=== PATIENT | male | born 1955 | race Caucasian/White ===

== ENCOUNTER 2025-04-02 10:32 | Inpatient (IN) ==
[2025-04-02 11:19] LABS: Basophils # (auto) 0.03 K/uL (0.00-0.20); Basophils % (auto) 0.4 %; Eosinophils # (auto) 0.13 K/uL (0.00-0.50); Eosinophils % (auto) 1.7 %; Hematocrit (blood only) 38.9 % (42.0-52.0); Hemoglobin 13.3 g/dl (14.0-18.0); Immature Granulocytes # (auto) 0.03 K/uL (0.01-0.20); Immature Granulocytes % (auto) 0.4 %; Lymphocytes # (auto) 1.53 K/uL (1.20-3.40); Lymphocytes % (auto) 19.5 %; Mean Corpuscular Hemoglobin 32.8 pg (25.0-34.0); Mean Corpuscular Hgb Conc 34.2 g/dL (32.0-36.0); Mean Corpuscular Volume 95.8 fL (80.0-100.0); Mean Platelet Volume 11.7 fL (9.4-12.4); Monocytes # (auto) 0.51 K/uL (0.11-0.59); Monocytes % (auto) 6.5 %; Neutrophils # (auto) 5.62 K/uL (1.40-6.50); Neutrophils % (auto) 71.5 %; Platelet Count 156 K/uL (130-400); RDW Coefficient of Variation 14.6 % (11.5-14.5); RDW Standard Deviation 50.8 fL (36.4-46.3); Red Blood Count 4.06 M/uL (4.70-6.10); White Blood Count 7.85 K/ul (4.8-10.8)
--- NOTE | 2025-04-02 11:33 | Emergency Department Note ---
Impression & Plan Acute exacerbation of CHF (congestive heart failure), Hypomagnesemia, Dyspnea on exertion, Elevated brain natriuretic peptide (BNP) level ED Provider Note HISTORY OF PRESENT ILLNESS: Patient is a 69-year-old male presenting with chest pain and shortness of breath. Patient reports symptoms been ongoing for the last month but have gotten progressively worse and more persistent. He reports that he is very short of breath with minimal amounts of exertion. He walked to the bathroom in the emergency department and needed about 5 steps before became very winded. He states that he also gets intermittent episodes of left-sided chest pain. He describes chest pain as "feels like someone punched me in the chest." He reports that 48 hours ago he had an episode of chest pain that woke him from sleep and he took a sublingual nitro with improvement in his chest pain symptoms. Patient denies any DVT or PE history. Denies any history of cardiac stents. Patient was on aspirin and Eliquis for history of A-fib. He reports he has had some lower extremity edema over the last few weeks. He denies any fevers but does report an intermittent cough productive of a white mucus over the last few weeks. Denies any recent sick contact exposures. He does report that he has occasionally coughed so hard that he has noticed blood in his sputum. ROS: as above PHYSICAL EXAM: Constitutional: Patient appears in no acute distress. HENT: Head: Normocephalic and atraumatic. Eyes: EOMI, PERRL Mouth/Throat: Mucous membranes moist. Neck: Trachea midline. Neck supple. Cardiovascular: Irregular rhythm. No murmurs, rubs or gallops. Intact distal pulses. Pulmonary/Chest: No respiratory distress. Breath sounds clear and equal bilaterally. No wheezes or rales. Abdominal: Abdomen soft, no tenderness, rebound or guarding. Musculoskeletal: No tenderness or deformity noted. Trace edema of bilateral lower extremities Skin: Warm and dry. No rash, erythema, pallor or cyanosis Psychiatric: Appropriate mood and affect for situation. Neurological: Alert and keenly responsive. CN II-XII grossly intact, moving all extremities equally and fully. MDM: - Vitals signs showed hypertension and tachycardia. - History obtained via patient. History as above. - Chronic conditions affecting care: Mitral regurgitation; HLD; paroxysmal Afib; bifascicular block - Differential diagnoses include, but are not limited to: Congestive heart failure; acute coronary syndrome; COPD/asthma exacerbation; pulmonary edema; pulmonary embolism; pneumonia; pneumothorax; viral syndrome - Order placed for continuous cardiac monitoring. At this time, monitor showed rate of 95 bpm with irregular rhythm, per my interpretation. - External medical records reviewed. Cardiology visit note dated02/2024 was reviewed. Patient follows in their clinic for paroxysmal A-fib and severe mitral regurg. - EKG image interpreted by myself showed atrial flutter. Rate 79 bpm. QT 418. No acute ischemic changes. Noted to have a bifascicular block. - Laboratory workup interpreted by myself showed normal WBC; elevated INR (1.2); elevated D-dimer (550); stable electrolytes other than a hypomagnesemia (Mg 1.5); elevated total bilirubin (1.8) with normal AST/ALT; elevated troponin (20.5); elevated BNP (289) - CXR image reviewed by myself showed perihilar vascular congestion, per my interpretation. - Viral respiratory panel negative - CT PE negative for PE. Noted to have interval trace pleural effusions. Also did have a few small pulmonary nodules. - Patient given 40 mg IV lasix in ER. - Discussion was had with case filler about patient's case and need for admission - Hospitalist, Dr. Chen, consulted for admission - [facility] ASSESSMENT AND PLAN: Diagnosis: Acute CHF exacerbation; dyspnea on exertion; hypomagnesemia; elevated BNP Plan: Admit Past Med/Surg History Problem List (Updated 04/02/25 @ 16:54 by Alma Wells MD) Elevated brain natriuretic peptide (BNP) level (Acute) Dyspnea on exertion (Acute) Hypomagnesemia (Acute) Acute exacerbation of CHF (congestive heart failure) (Acute) Severe mitral regurgitation Hypercholesterolemia Anticoagulant long-term use Bifascicular bundle branch block Chest pain Paroxysmal atrial fibrillation Medical History Atrial fibrillation Social History Smoking Status: Unknown if ever smoked Tobacco Type: E-cigarettes / Vaping Preferred Language: Angolan Feels Safe at Home: Yes Allergies Allergies Allergy/AdvReac Type Severity Reaction Status Date / Time No Known Allergies Allergy Verified 02/06/24 12:51 Home Meds Home Medications Medication Instructions Recorded Confirmed aspirin 81 mg tablet,delayed 81 mg PO DAILY 06/14/23 04/02/25 release atorvastatin 40 mg tablet 80 mg PO HS 06/14/23 04/02/25 enalapril maleate 20 mg tablet 20 mg PO DAILY 06/14/23 04/02/25 furosemide 40 mg tablet (Lasix) 40 mg PO DAILY 06/14/23 04/02/25 insulin regular human 100 unit/mL 1 sliding scale dose subcut 06/14/23 04/02/25 injection solution (Novolin R USEASDIRECTD Regular U-100 Insulin) metformin 1,000 mg tablet 1,000 mg PO BID 06/14/23 04/02/25 nitroglycerin 0.4 mg sublingual 0.4 mg sublingual DIRECTED PRN 06/14/23 04/02/25 tablet (Nitrostat) Chest Pain potassium chloride 10 mEq 10 meq PO DAILY 06/14/23 04/02/25 tablet,extended release apixaban 5 mg tablet (Eliquis) 5 mg PO BID 07/15/23 04/02/25 insulin glargine 100 unit/mL 34 unit subcut DAILY 02/06/24 04/02/25 subcutaneous solution metoprolol tartrate 100 mg tablet 100 mg PO DAILY 04/02/25 04/02/25 Results & Data (ED) Vital Signs Vital Signs - 24 hr 04/02/25 10:42 04/02/25 10:42 04/02/25 11:00 Temperature 36.7 C Temperature Source Oral Pulse Rate 110 H Pulse Rate from SpO2 Sensor Respiratory Rate 24 Respiratory Effort / Characteristics Non-Labored Spontaneous Non-Labored Respiratory Depth Normal Normal Respiratory Pattern Regular Blood Pressure 121/93 Blood Pressure Mean 102 Pulse Oximetry 97 93 Pulse Oximetry [Exercises] Oxygen Delivery Method Room Air Room Air Sepsis Recent Fever Within 48 Hours No Sepsis New/Unexplained Change in Mental Status N/A Sepsis Action Taken by Nursing No Action Required 04/02/25 11:43 04/02/25 11:57 04/02/25 12:36 Temperature Temperature Source Pulse Rate 69 76 Pulse Rate from SpO2 Sensor 80 Respiratory Rate 15 Respiratory Effort / Characteristics Respiratory Depth Respiratory Pattern Blood Pressure 133/87 Blood Pressure Mean 102 Pulse Oximetry 96 Pulse Oximetry [Exercises] Oxygen Delivery Method Room Air Room Air Sepsis Recent Fever Within 48 Hours Sepsis New/Unexplained Change in Mental Status Sepsis Action Taken by Nursing 04/02/25 13:55 04/02/25 14:00 04/02/25 14:03 Temperature Temperature Source Pulse Rate 73 62 Pulse Rate from SpO2 Sensor 66 Respiratory Rate 24 17 Respiratory Effort / Characteristics Respiratory Depth Respiratory Pattern Blood Pressure 114/67 123/87 Blood Pressure Mean 87 92 Pulse Oximetry 94 93 Pulse Oximetry [Exercises] Oxygen Delivery Method Room Air Room Air Sepsis Recent Fever Within 48 Hours Sepsis New/Unexplained Change in Mental Status Sepsis Action Taken by Nursing 04/02/25 14:34 04/02/25 14:39 04/02/25 15:09 Temperature Temperature Source Pulse Rate 79 74 Pulse Rate from SpO2 Sensor 73 71 Respiratory Rate 17 13 Respiratory Effort / Characteristics Respiratory Depth Respiratory Pattern Blood Pressure 139/98 125/74 Blood Pressure Mean 112 91 Pulse Oximetry 93 98 Pulse Oximetry [Exercises] Oxygen Delivery Method Room Air Room Air Sepsis Recent Fever Within 48 Hours Sepsis New/Unexplained Change in Mental Status Sepsis Action Taken by Nursing 04/02/25 15:55 04/02/25 16:00 04/02/25 16:09 Temperature Temperature Source Pulse Rate 75 69 Pulse Rate from SpO2 Sensor 73 Respiratory Rate 24 Respiratory Effort / Characteristics Respiratory Depth Respiratory Pattern Blood Pressure 117/69 Blood Pressure Mean 85 Pulse Oximetry 93 Pulse Oximetry [Exercises] 94 Oxygen Delivery Method Room Air Room Air Sepsis Recent Fever Within 48 Hours Sepsis New/Unexplained Change in Mental Status Sepsis Action Taken by Nursing Laboratory Data 04/02/25 10:45 04/02/25 10:45 Lab Results 04/02/25 04/02/25 04/02/25 Range/Units 10:45 13:05 13:33 WBC 7.85 (4.8-10.8) K/ul RBC 4.06 L (4.70-6.10) M/uL Hgb 13.3 L (14.0-18.0) g/dl Hct 38.9 L (42.0-52.0) % MCV 95.8 (80.0-100.0) fL MCH 32.8 (25.0-34.0) pg MCHC 34.2 (32.0-36.0) g/dL RDW Std Deviation 50.8 H (36.4-46.3) fL RDW Coeff of Toi 14.6 H (11.5-14.5) % Plt Count 156 (130-400) K/uL MPV 11.7 (9.4-12.4) fL Immature Gran % (Auto) 0.4 % Neut % (Auto) 71.5 % Lymph % (Auto) 19.5 % [place] % (Auto) 6.5 % Eos % (Auto) 1.7 % Baso % (Auto) 0.4 % Neut # (Auto) 5.62 (1.40-6.50) K/uL Lymph # (Auto) 1.53 (1.20-3.40) K/uL [place] # (Auto) 0.51 (0.11-0.59) K/uL Eos # (Auto) 0.13 (0.00-0.50) K/uL Baso # (Auto) 0.03 (0.00-0.20) K/uL Immature Gran # (Auto) 0.03 (0.01-0.20) K/uL PT 12.5 H (9.0-12.0) Seconds INR 1.2 H (0.9-1.1) D-Dimer 550 H* (0-500) ug/L FEU Sodium 143 (136-145) mmol/L Potassium 4.1 (3.5-5.1) mmol/L Chloride 106 (98-107) mmol/L Carbon Dioxide 29 (21-32) mmol/L Anion Gap 8 (3-11) BUN 29 H (6-23) mg/dl Creatinine 1.21 (0.6-1.4) mg/dl Est Cr Clr Drug Dosing 66.3 ml/min eGFR 64.81 BUN/Creatinine Ratio 24.0 H (10-20) Glucose 114 H (70-99(Fasting)) mg/dl Calcium 9.7 (8.6-10.3) mg/dl Magnesium 1.5 L (1.7-2.4) mg/dl Total Bilirubin 1.8 H (0.2-1.0) mg/dl AST 19 (13-39) U/L ALT 24 (7-52) U/L Alkaline Phosphatase 71 (34-104) U/L Troponin I High Sens 20.5 H 19.7 (0-20) pg/ml B-Natriuretic Peptide 389 H (0-100) pg/ml Total Protein 6.8 (6.0-8.3) gm/dl Albumin 3.9 (3.4-5.0) gm/dl Globulin 2.9 (2.5-4.0) gm/dl Albumin/Globulin Ratio 1.3 (0.9-2) Urine Color Yellow Urine Appearance Clear (Clear) Urine pH 6.5 (4.5-7.5) Ur Specific [place] 1.009 (1.000-1.030) Urine Protein Negative (Negative) Urine Glucose (UA) Negative (Negative) Urine Ketones Negative (Negative) Urine Blood Negative (Negative) Urine Nitrite Positive A (Negative) Urine Bilirubin Negative (Negative) Urine Urobilinogen Negative (Negative) Ur Leukocyte Esterase 1+ H (Negative) Urine WBC (Auto) 6-10 H (0-5) /hpf Urine RBC (Auto) 0-2 (0-2) /hpf U Hyaline Cast (Auto) 0-2 (0-2) /lpf U Epithel Cells (Auto) 0-2 (0-2) /hpf Urine Bacteria (Auto) 3+ H (None Seen) Urine Comment Adenovirus (PCR) (NotDetected) B. pertussis DNA (PCR) (NotDetected) B.parapertussis DNA PCR (NotDetected) C. pneumoniae DNA (PCR) (NotDetected) Coronavirus OC43 (PCR) (NotDetected) Coronavirus HKU1 (PCR) (NotDetected) Coronavirus 229E (PCR) (NotDetected) SARS-CoV-2 (PCR) (NotDetected) Coronavirus NL63 (PCR) (NotDetected) Human Metapneumovir PCR (NotDetected) Influenza Type A (PCR) (NotDetected) Influenza Type B (PCR) (NotDetected) M. pneumoniae (PCR) (NotDetected) Parainfluenza 1 (PCR) (NotDetected) Parainfluenza 2 (PCR) (NotDetected) Parainfluenza 3 (PCR) (NotDetected) Parainfluenza 4 (PCR) (NotDetected) RSV (PCR) (NotDetected) Entero/Rhino (PCR) (NotDetected) 04/02/25 Range/Units Unknown WBC (4.8-10.8) K/ul RBC (4.70-6.10) M/uL Hgb (14.0-18.0) g/dl Hct (42.0-52.0) % MCV (80.0-100.0) fL MCH (25.0-34.0) pg MCHC (32.0-36.0) g/dL RDW Std Deviation (36.4-46.3) fL RDW Coeff of Toi (11.5-14.5) % Plt Count (130-400) K/uL MPV (9.4-12.4) fL Immature Gran % (Auto) % Neut % (Auto) % Lymph % (Auto) % [place] % (Auto) % Eos % (Auto) % Baso % (Auto) % Neut # (Auto) (1.40-6.50) K/uL Lymph # (Auto) (1.20-3.40) K/uL [place] # (Auto) (0.11-0.59) K/uL Eos # (Auto) (0.00-0.50) K/uL Baso # (Auto) (0.00-0.20) K/uL Immature Gran # (Auto) (0.01-0.20) K/uL PT (9.0-12.0) Seconds INR (0.9-1.1) D-Dimer (0-500) ug/L FEU Sodium (136-145) mmol/L Potassium (3.5-5.1) mmol/L Chloride (98-107) mmol/L Carbon Dioxide (21-32) mmol/L Anion Gap (3-11) BUN (6-23) mg/dl Creatinine (0.6-1.4) mg/dl Est Cr Clr Drug Dosing ml/min eGFR BUN/Creatinine Ratio (10-20) Glucose (70-99(Fasting)) mg/dl Calcium (8.6-10.3) mg/dl Magnesium (1.7-2.4) mg/dl Total Bilirubin (0.2-1.0) mg/dl AST (13-39) U/L ALT (7-52) U/L Alkaline Phosphatase (34-104) U/L Troponin I High Sens (0-20) pg/ml B-Natriuretic Peptide (0-100) pg/ml Total Protein (6.0-8.3) gm/dl Albumin (3.4-5.0) gm/dl Globulin (2.5-4.0) gm/dl Albumin/Globulin Ratio (0.9-2) Urine Color Urine Appearance (Clear) Urine pH (4.5-7.5) Ur Specific [place] (1.000-1.030) Urine Protein (Negative) Urine Glucose (UA) (Negative) Urine Ketones (Negative) Urine Blood (Negative) Urine Nitrite (Negative) Urine Bilirubin (Negative) Urine Urobilinogen (Negative) Ur Leukocyte Esterase (Negative) Urine WBC (Auto) (0-5) /hpf Urine RBC (Auto) (0-2) /hpf U Hyaline Cast (Auto) (0-2) /lpf U Epithel Cells (Auto) (0-2) /hpf Urine Bacteria (Auto) (None Seen) Urine Comment Adenovirus (PCR) Not Detected (NotDetected) B. pertussis DNA (PCR) Not Detected (NotDetected) B.parapertussis DNA PCR Not Detected (NotDetected) C. pneumoniae DNA (PCR) Not Detected (NotDetected) Coronavirus OC43 (PCR) Not Detected (NotDetected) Coronavirus HKU1 (PCR) Not Detected (NotDetected) Coronavirus 229E (PCR) Not Detected (NotDetected) SARS-CoV-2 (PCR) Not Detected (NotDetected) Coronavirus NL63 (PCR) Not Detected (NotDetected) Human Metapneumovir PCR Not Detected (NotDetected) Influenza Type A (PCR) Not Detected (NotDetected) Influenza Type B (PCR) Not Detected (NotDetected) M. pneumoniae (PCR) Not Detected (NotDetected) Parainfluenza 1 (PCR) Not Detected (NotDetected) Parainfluenza 2 (PCR) Not Detected (NotDetected) Parainfluenza 3 (PCR) Not Detected (NotDetected) Parainfluenza 4 (PCR) Not Detected (NotDetected) RSV (PCR) Not Detected (NotDetected) Entero/Rhino (PCR) Not Detected (NotDetected) Administered Medications Discontinued Medications Furosemide (Furosemide 40 Mg/4 Ml Vial) 40 mg IV ONE ONE Stop: 04/02/25 14:19 Last Admin: 04/02/25 14:33 Dose: 40 mg Documented By: JUDE Ioversol (Optiray 320 125ml) 118 ml IV ONCE ONE Stop: 04/02/25 13:01 Last Admin: 04/02/25 13:01 Dose: 118 ml Documented By: [facility] Imaging Data Radiologist's Impression: Chest X-Ray 04/02/25 11:00 XR chest 1V portable CLINICAL HISTORY: Dyspnea COMPARISON STUDY: 06/15/2023 FINDINGS: Stable mild cardiomegaly with mild pulmonary vascular congestion. Inspiration is shallow. No consolidation or pleural effusion seen. No pneumothorax. IMPRESSION: Mild CHF. ACT 112: Negative or not required by law. Electronically signed by: Reggie Gibbons M.D. 04/02/2025 11:38 AM Chest CTA 04/02/25 12:22 CT angio chest PE protocol CT DOSE: 899.03 mGy.cm HISTORY: PE. TECHNIQUE: Multiple CTA images of the chest were obtained after the intravenous administration of 120 ml Optiray. Coronal and sagittal MIPS were obtained from the axial data set and were submitted for review. All measurements were obtained according to NASCET criteria. A dose lowering technique was utilized adhering to the principles of ALARA. COMPARISON STUDY: 06/15/2023 FINDINGS: There are mild airway secretions. There are interval trace bilateral pleural effusions with minimal adjacent dependent compressive atelectasis. No other pulmonary consolidation seen. There are a few interval small ulnar nodules, largest at the right lung apex measures 6 mm. There is a stable mildly enlarged anterior right paratracheal and subcarinal lymph nodes measuring 2 cm greatest dimension. No progressive adenopathy. No pulmonary embolism seen. There are moderate diffuse degenerative changes at the thoracic spine. No acute osseous findings. IMPRESSION: 1. No pulmonary embolism seen. 2. Interval trace pleural effusions. 3. A few interval small pulmonary nodules. Follow-up chest CT recommended in 6- 12 months. ACT 112: Positive. There are findings on this exam that require communication between the performing entity and the patient following Patient Test Result Information Act ([place] Act 112) guidelines. The above report was generated using voice recognition software. It may contain grammatical, syntax or spelling errors. Electronically signed by: Reggie Gibbons M.D. 04/02/2025 1:15 PM Discharge Plan Visit Data Chief Complaint: Shortness of Breath/Dyspnea Stated Complaint: SOB ED Provider: Alma Wells Discharge Problem: Acute exacerbation of CHF (congestive heart failure), Hypomagnesemia, Dyspnea on exertion, Elevated brain natriuretic peptide (BNP) level Condition: Fair Forms Stand Alone Forms: [facility] Prescriptions Prescriptions: No Action Eliquis 5 mg tablet 5 mg PO BID furosemide [Lasix] 40 mg Tablet 40 mg PO DAILY atorvastatin 40 mg Tablet 80 mg PO HS enalapril maleate 20 mg Tablet 20 mg PO DAILY potassium chloride 10 mEq Tablet Extended Release 10 meq PO DAILY aspirin 81 mg Tablet,Delayed Release (Dr/Ec) 81 mg PO DAILY metformin 1,000 mg Tablet 1,000 mg PO BID Novolin R Regular U100 Insulin 100 unit/mL Solution 1 sliding scale dose SUBCUT USEASDIRECTD Rx Instructions: BSG 151-200=2 UNITS, BSG 201-250=4 UNITS, BSG 251-300=6 UNITS, BSG 301-350=8 UNITS, BSG 351-400=10 UNITS, BSG 401-450=12 UNITS, BSG >451=CALL MD. nitroglycerin [Nitrostat] 0.4 mg Tablet, Sublingual 0.4 mg sublingual DIRECTED PRN (Reason: Chest Pain) insulin glargine 100 unit/mL solution 34 unit SUBCUT DAILY metoprolol tartrate 100 mg Tablet 100 mg PO DAILY Referrals Referrals: Daryl TORRES [Primary Care Provider] -
[2025-04-02 11:38] LABS: Albumin Globulin Ratio 1.3 (0.9-2); Albumin Level 3.9 gm/dl (3.4-5.0); Bilirubin,Total 1.8 mg/dl (0.2-1.0); Calcium 9.7 mg/dl (8.6-10.3); Creatinine Clr Calc Pharmacy 66.3 ml/min; Globulin 2.9 gm/dl (2.5-4.0); Magnesium 1.5 mg/dl (1.7-2.4); Potassium 4.1 mmol/L (3.5-5.1); Total Protein 6.8 gm/dl (6.0-8.3)
--- NOTE | 2025-04-02 11:40 | XRay Report ---
XR chest 1V portable CLINICAL HISTORY: Dyspnea COMPARISON STUDY: 06/15/2023 FINDINGS: Stable mild cardiomegaly with mild pulmonary vascular congestion. Inspiration is shallow. N o consolidation or pleural effusion seen. No pneumothorax. IMPRESSION: Mild CHF. ACT 112: Negative or not required by law. Electronically signed by: Reggie Gibbons M.D. 04/02/2025 11:38 AM
[2025-04-02 11:46] LABS: INR 1.2 (0.9-1.1); Prothrombin Time 12.5 Seconds (9.0-12.0)
[2025-04-02 12:05] LABS: D Dimer 550 ug/L FEU (0-500)
[2025-04-02 12:19] LABS: Adenovirus PCR Not Detected (NotDetected); Bordetella parapertussis PCR Not Detected (NotDetected); Bordetella pertussis PCR Not Detected (NotDetected); Chlamydia pneumoniae PCR Not Detected (NotDetected); Coronavirus 229E PCR Not Detected (NotDetected); Coronavirus CoV-2 (COVID19)PCR Not Detected (NotDetected); Coronavirus HKU1 PCR Not Detected (NotDetected); Coronavirus NL63 PCR Not Detected (NotDetected); Coronavirus OC43PCR Not Detected (NotDetected); Human Metapneumovirus PCR Not Detected (NotDetected); Influenza A PCR Not Detected (NotDetected); Influenza B PCR Not Detected (NotDetected); Mycoplasma pneumoniae PCR Not Detected (NotDetected); Parainfluenza Virus 1 PCR Not Detected (NotDetected); Parainfluenza Virus 2 PCR Not Detected (NotDetected); Parainfluenza Virus 3 PCR Not Detected (NotDetected); Parainfluenza Virus 4 PCR Not Detected (NotDetected); Respiratory Syncytial VirusPCR Not Detected (NotDetected); Rhinovirus/Enterovirus PCR Not Detected (NotDetected)
[2025-04-02 12:39] LABS: Troponin I High Sensitivity 20.5 pg/ml (0-20)
[2025-04-02] MEDS: OPTIRAY 320 125ml IV ONE (13:01)
--- NOTE | 2025-04-02 13:17 | CT Scan Report ---
CT angio chest PE protocol CT DOSE: 899.03 mGy.cm HISTORY: PE. TECHNIQUE: Multiple CTA images of the chest were obtained after the intravenous administration of 120 ml Optiray. Coronal and sagittal MIPS were obtained from the axial data set and were submitted for review. All measurements were obtained according to NASCET criteria. A dose lowering technique was u tilized adhering to the principles of ALARA. COMPARISON STUDY: 06/15/2023 FINDINGS: There are mild airway secretions. There are interval trace bilateral pleural effusions with minimal adjacent dependent compressive atelectasis. No other pulmonary consolidation seen. There are a few interval small ulnar nodules, largest at the right lung apex measures 6 mm. There is a stable mildly enlarged anterior right paratracheal and subcarinal lymph nodes measuring 2 cm greatest dimens ion. No progressive adenopathy. No pulmonary embolism seen. There are moderate diffuse degenerative c hanges at the thoracic spine. No acute osseous findings. IMPRESSION: 1. No pulmonary embolism seen. 2. Interval trace pleural effusions. 3. A few interval small pulmonary nodules. Follow-up chest CT recommended in 6-12 months. ACT 112: Positive. There are findings on this exam that require communication between the performing entity and the patient following Patient Test Result Information Act ([place] Act 112) guidelines. The above report was generated using voice recognition software. It may contain grammatical, syntax o r spelling errors. Electronically signed by: Reggie Gibbons M.D. 04/02/2025 1:15 PM
[2025-04-02 13:20] LABS: Appearance Urine Clear (Clear); Bacteria Urine Automated 3+ (None Seen); Bilirubin Urine Negative (Negative); Blood Urine Negative (Negative); Cast Urine Automated 0-2 /lpf (0-2); Color Urine Yellow; Epithelial Cell Urine Auto 0-2 /hpf (0-2); Glucose Urine UA Negative (Negative); Ketones Urine Negative (Negative); Leukocyte Esterase Urine 1+ (Negative); Nitrite Urine Positive (Negative); Protein Urine Negative (Negative); RBC Urine Automated 0-2 /hpf (0-2); Specific Gravity Urine 1.009 (1.000-1.030); Urobilinogen Urine Negative (Negative); pH Urine 6.5 (4.5-7.5)
--- NOTE | 2025-04-02 13:39 | Electrocardiogram Report ---
Test Reason : Blood Pressure : */* mmHG Vent. Rate : 79 BPM Atrial Rate : 340 BPM P-R Int : * ms QRS Dur : 120 ms QT Int : 418 ms P-R-T Axes : * -60 -22 degrees QTcB Int : 479 ms Atrial flutter with variable A-V block Right bundle branch block Left anterior fascicular block Bifascicular block Anterior infarct Abnormal ECG When compared with ECG of 06-Feb-2024 13:01, (unconfirmed) Significant changes have occurred Confirmed by Vladimir Deluca ([id number]) on 04/02/2025 1:38:53 PM Referred By: Daryl TORRES Confirmed By: Vladimir Deluca
[2025-04-02] MEDS: FUROSEMIDE 40 MG/4 ML VIAL IV ONE (14:33)
--- NOTE | 2025-04-02 17:08 | History & Physical Report ---
Date of Service April 02, 2025 Assessment & Plan (1) Acute exacerbation of CHF (congestive heart failure): Plan: Is a 69-year-old incarcerated male with a history of atrial fibrillation, mitral regurgitation who presents from the [facility] on account of worsening shortness of breath, leg swelling. Found to have congestive changes on chest x-ray 1. Acute CHF exacerbation: Presents with worsening shortness of breath, leg swelling Found to have congestive changes on chest x-ray, BNP elevated at 389, no evidence of PE on CT angio Will obtain 2D echo Start IV Lasix 40 mg twice daily Monitor input and output, daily weights (2) Paroxysmal atrial fibrillation: Plan: After September good control On metoprolol 100 mg daily, continue Also continue apixaban 5 mg twice daily (3) Type 2 diabetes mellitus: Plan: Will monitor blood glucose Current insulin sliding scale Continue glargine 34 units daily (4) Severe mitral regurgitation: Plan: Has a history of severe mitral regurgitation seen on the last echo done 2023 Will repeat 2D echo (5) Elevated troponin: Plan: Mild troponin Most likely due to demand ischemia No ST changes on EKG (6) Elevated liver enzymes: Plan: Mild elevation in liver enzymes Could be due to passive congestion of the liver from CHF Will monitor liver enzymes as we diurese him (7) Hypercholesterolemia: Plan: Triglyceride, cholesterol elevated Patient on atorvastatin 80 mg at home Will continue Plan Admit to telemetry Full code DVT prophylaxis apixaban History of Present Illness Chief Complaint: sob Primary Care Provider: MELISSA Brito Is a 68-year-old male with a history of type 2 diabetes, atrial fibrillation on Eliquis, mitral regurgitation, first-degree AV block, presents from the [facility] today with complaints of worsening shortness of breath. According to the patient, he noticed that he was getting short of breath starting about 1 week ago but he got progressively worse. He said he got short of breath even on mild exertion and also noticed worsening leg swelling and some chest pressure or discomfort. He has a history of atrial fibrillation and first-degree AV block and follows up with cardiology, his last cardiology visit was sometime last year January 2024. Today in the emergency department D-dimer was elevated however CT angio chest did not suggest PE BNP was 389 his lipid profile was elevated. Chest x-ray showed evidence of mild cardiomegaly with mild pulmonary vascular congestion. He was given a dose of Lasix and will be admitted to the hospital for further investigation of further management. Allergies Allergy/AdvReac Type Severity Reaction Status Date / Time No Known Allergies Allergy Verified 02/06/24 12:51 Home Medications Medication Instructions Recorded Confirmed Type aspirin 81 mg tablet,delayed 81 mg PO DAILY 06/14/23 04/02/25 History release atorvastatin 40 mg tablet 80 mg PO HS 06/14/23 04/02/25 History enalapril maleate 20 mg tablet 20 mg PO DAILY 06/14/23 04/02/25 History furosemide 40 mg tablet (Lasix) 40 mg PO DAILY 06/14/23 04/02/25 History insulin regular human 100 unit/mL 1 sliding scale dose subcut 06/14/23 04/02/25 History injection solution (Novolin R USEASDIRECTD Regular U-100 Insulin) metformin 1,000 mg tablet 1,000 mg PO BID 06/14/23 04/02/25 History nitroglycerin 0.4 mg sublingual 0.4 mg sublingual DIRECTED PRN 06/14/23 04/02/25 History tablet (Nitrostat) Chest Pain potassium chloride 10 mEq 10 meq PO DAILY 06/14/23 04/02/25 History tablet,extended release apixaban 5 mg tablet (Eliquis) 5 mg PO BID 07/15/23 04/02/25 History insulin glargine 100 unit/mL 34 unit subcut DAILY 02/06/24 04/02/25 History subcutaneous solution metoprolol tartrate 100 mg tablet 100 mg PO DAILY 04/02/25 04/02/25 History Past Med/Surg History Problem List (Updated 04/02/25 @ 17:06 by Gwen Graves MD) Elevated liver enzymes Elevated troponin Type 2 diabetes mellitus Elevated brain natriuretic peptide (BNP) level (Acute) Dyspnea on exertion (Acute) Hypomagnesemia (Acute) Acute exacerbation of CHF (congestive heart failure) (Acute) Severe mitral regurgitation Hypercholesterolemia Anticoagulant long-term use Bifascicular bundle branch block Chest pain Paroxysmal atrial fibrillation Medical History Atrial fibrillation Social History Smoking Status: Unknown if ever smoked Tobacco Type: E-cigarettes / Vaping Preferred Language: [place] Feels Safe at Home: Yes Review of Systems Review of Systems: All systems reviewed are negative, apart from the ones contained in the history. Physical Exam Physical Exam: The patient is awake, alert and oriented 3, well developed and well nourished, normocephalic and atraumatic, lying in bed and in no acute distress. HEENT--PERRL, EOMI, mucous membranes and oropharynx mildly dry Neck--supple. No JVD. No bruits. Thyroid normal, trachea midline, no adenopathy. Heart--normal S1 and S2.Regurgitant murmur. Lungs--Reduced and on auscultation, bibasilar crackles Abdomen--normal bowel sounds and soft. Extremities--no cyanosis or clubbing. Bilateral leg edema. Dermatologic--normal skin turgor, normal color, no abnormal lymph nodes, no rash. Neurologic--cranial nerves II through XII grossly intact. Rheumatologic--normal range of motion. Psychiatric--normal affect. Results & Data Results & Data Vital Signs (Past 12 Hours) Vital Signs Temp Pulse Resp BP Pulse Ox Pulse Ox O2 Del Method 04/02/25 16:09 94 Room Air 04/02/25 16:00 69 24 117/69 93 Room Air 04/02/25 15:55 75 04/02/25 15:09 74 13 125/74 98 Room Air 04/02/25 14:39 79 17 93 Room Air 04/02/25 14:34 139/98 04/02/25 14:03 62 17 93 Room Air 04/02/25 14:00 123/87 04/02/25 13:55 73 24 114/67 94 Room Air 04/02/25 12:36 76 15 133/87 96 Room Air 04/02/25 11:57 69 04/02/25 11:43 Room Air 04/02/25 11:00 93 Room Air 04/02/25 10:42 98.1 F 110 H 24 121/93 97 Room Air PG Care Time/CCT Total # of Minutes Spent Total Time Spent with Patient: Total time spent is greater than 50% in coordination of care (as documented) at patient's floor/unit and/or counseling patient: Coding Level of Care Code 38757 INT INP/OBS CARE 3/75MIN Diagnoses Acute exacerbation of CHF (congestive heart failure) I50.9 Paroxysmal atrial fibrillation I48.0 Type 2 diabetes mellitus E11.9 Severe mitral regurgitation I34.0 Elevated troponin R79.89 Elevated liver enzymes R74.8 Hypercholesterolemia E78.00 Time Spent (min) 75
[2025-04-02] MEDS: cefTRIAXone SODIUM 2,000 MG/50 ML BAG IV SCH (19:34)
[2025-04-02] MEDS: APIXABAN 5 MG TABLET PO SCH (20:04)
[2025-04-02] MEDS: ATORVASTATIN 40 MG TAB PO SCH (20:04)
[2025-04-02] MEDS: FUROSEMIDE 40 MG/4 ML VIAL IV SCH (20:46)
[2025-04-02] MEDS: INSULIN ASPART PER UNIT CHARGE SC SCH (20:46)
[2025-04-03] MEDS: MAGNESIUM SULFATE / D5W 1 GM/100 ML BAG IV SCH (00:10)
[2025-04-03] MEDS: METOPROLOL TARTRATE 25 MG TAB PO ONE (00:10)
[2025-04-03 00:15] LABS: Calcium 9.2 mg/dl (8.6-10.3); Creatinine Clr Calc Pharmacy 66.3 ml/min; Magnesium 1.5 mg/dl (1.7-2.4); Potassium 3.8 mmol/L (3.5-5.1)
[2025-04-03 07:20] LABS: Hematocrit (blood only) 39.6 % (42.0-52.0); Hemoglobin 13.6 g/dl (14.0-18.0); Mean Corpuscular Hemoglobin 32.5 pg (25.0-34.0); Mean Corpuscular Hgb Conc 34.3 g/dL (32.0-36.0); Mean Corpuscular Volume 94.5 fL (80.0-100.0); Mean Platelet Volume 11.5 fL (9.4-12.4); Platelet Count 148 K/uL (130-400); RDW Coefficient of Variation 14.4 % (11.5-14.5); RDW Standard Deviation 49.3 fL (36.4-46.3); Red Blood Count 4.19 M/uL (4.70-6.10); White Blood Count 9.31 K/ul (4.8-10.8)
[2025-04-03 07:43] LABS: BUN Creatinine Ratio 20.6 (10-20); Calcium 9.3 mg/dl (8.6-10.3); Creatinine Clr Calc Pharmacy 62.3 ml/min; Potassium 3.7 mmol/L (3.5-5.1)
--- NOTE | 2025-04-03 08:44 | Cardiology Consultation ---
Date of Consultation April 03, 2025 Assessment & Plan (1) Acute exacerbation of CHF (congestive heart failure): (2) Paroxysmal atrial fibrillation: (3) Severe mitral regurgitation: (4) Anticoagulant long-term use: Plan 1. CHF: He does have some evidence of congestive heart failure including peripheral edema, and elevated BNP, chest x-ray findings (although not CT scan findings of it) and symptoms. I agree with diuresis although I do not think he is in severe pulmonary edema. Fluid retention could be related to atrial fibrillation. 2. Paroxysmal atrial fibrillation: I am not sure how much time he spends in atrial fibrillation, his rate is currently well-controlled but when he was in atrial fibrillation in the past he did not feel well. Most of his current presentation may be due to development of atrial fibrillation even though his heart rate is well-controlled. He may be in persistent atrial fibrillation at this time, we do not have records to determine that. I would consider cardioversion if he has been compliant with his Eliquis which is likely the ca se. With the recurrence now I am going to start Flecainide with possible cardioversion Saturday if he remains in AF. 3. Mitral regurgitation: This could be contributory to his heart failure and his presentation, an echocardiogram is pending. This may have to be addressed depending on the severity. 4. Anticoagulation: He is on Eliquis at the correct dose, I would continue this. History of Present Illness Reason for Consultation: Atrial fibrillation, CHF Attending Physician: Masood Jimenez MD History of Present Illness This is a 69-year-old incarcerated male with atrial fibrillation identified in the emergency room on June 13, 2023. He was seen at that time for chest pain as well. He was started on anticoagulation with Eliquis (bridged with Lovenox until that was initiated). He presented again on June 14, 2023 and had a downward trending troponin. He presented again on June 15, 2023 with complaints of shortness of breath with minimal exertion and chest discomfort as well as lightheadedness. He remained in atrial fibrillation at a controlled heart rate at these times. Additionally a CTA of the chest was performed which was negative for PE. He returned for follow-up July 15, 2023, he had been feeling better by then and has not had recurrent chest discomfort. Apparently he felt better shortly after his last prior emergency room presentation in early June 2023. Interestingly he had converted to sinus rhythm spontaneously. He does have an abnormal electrocardiogram with first-degree AV block and bifascicular bundle branch block, he had not had an echocardiogram at that time however one was done on December 20, 2023 and this showed moderate left ventricular dilatation with an ejection fraction of 65% and probably normal wall motion. The left atrium was moderately dilated. He did have mitral valve prolapse with severe mitral regurgitation. There is no evidence of pulmonary hypertension. He does have hypercholesterolemia and has been on statin therapy. Laboratory studies were done on September 19, 2023 and show a total cholesterol of 206, however his HDL was only 37 yielding an elevated non-HDL cholesterol of 169. His calculated LDL was 124. These are somewhat high compared to what we would consider optimal. I last saw him in the office about 1 year ago and he was doing well. He presents now to the emergency room with dyspnea on exertion as well as chest discomfort and an elevated BNP. He reports that the symptoms have been worse for a month. He also awoke from his sleep with chest discomfort and took nitroglycerin (I do not know that he has coronary disease). He also has been having trouble with leg swelling. Evaluation here included a chest x-ray which suggests CHF and a moderately elevated BNP. CT angiography showed no evidence of PE, no mention is made of pulmonary congestion although there were trace pleural effusions.. He was in atrial fibrillation with a controlled heart rate (80 bpm) on presentation here, last year in the office he was in sinus rhythm. He remains on metoprolol tartrate 100 mg daily as his only rate control medications. An echocardiogram is pending. At the time of my evaluation today he is feeling well, he denies chest discomfort or shortness of breath. He feels he would like to be more active. He does not have palpitations or any sensation of when the atrial fibrillation might have started. He tells me he has been taking his Eliquis. Allergies Allergy/AdvReac Type Severity Reaction Status Date / Time No Known Allergies Allergy Verified 02/06/24 12:51 Home Medications Medication Instructions Recorded Confirmed Type aspirin 81 mg tablet,delayed 81 mg PO DAILY 06/14/23 04/02/25 History release atorvastatin 40 mg tablet 80 mg PO HS 06/14/23 04/02/25 History enalapril maleate 20 mg tablet 20 mg PO DAILY 06/14/23 04/02/25 History furosemide 40 mg tablet (Lasix) 40 mg PO DAILY 06/14/23 04/02/25 History insulin regular human 100 unit/mL 1 sliding scale dose subcut 06/14/23 04/02/25 History injection solution (Novolin R USEASDIRECTD Regular U-100 Insulin) metformin 1,000 mg tablet 1,000 mg PO BID 06/14/23 04/02/25 History nitroglycerin 0.4 mg sublingual 0.4 mg sublingual DIRECTED PRN 06/14/23 04/02/25 History tablet (Nitrostat) Chest Pain potassium chloride 10 mEq 10 meq PO DAILY 06/14/23 04/02/25 History tablet,extended release apixaban 5 mg tablet (Eliquis) 5 mg PO BID 07/15/23 04/02/25 History insulin glargine 100 unit/mL 34 unit subcut DAILY 02/06/24 04/02/25 History subcutaneous solution metoprolol tartrate 100 mg tablet 100 mg PO DAILY 04/02/25 04/02/25 History Patient History Medical History Atrial fibrillation Social History Smoking Status: Never smoker Tobacco Type: E-cigarettes / Vaping Hx Alcohol Use: No Hx Substance Use: No Preferred Language: [place] Citizen Counter Stacker Required: No Beliefs That Will Affect Care: None Current Living Situation Comment: MELISSA Brito Inmate Feels Safe at Home: Yes Assistive Devices: Denture - Upper, Denture - Lower and Glasses Review of Systems Review of Systems: All systems reviewed & are unremarkable except as noted in HPI & below Physical Exam Physical Exam: Constitutional: Alert, cooperative and in no distress. HEENT: Unremarkable Neck: No jugular venous distention, carotid pulses are normal and equal bilaterally without bruits. Pulmonary: Clear to auscultation bilaterally. Cardiac: Irregular rhythm with a grade 2/6 holosystolic murmur at the apex, no gallop or rub. Abdomen: Soft, nontender with normal bowel sounds. Extremities: +1 pretibial edema. Neurologic: No focal findings. Skin: No rash, ecchymoses or petechiae. Results & Data Vital Signs (Past 12 Hours) Vital Signs Temp Pulse Pulse Resp BP Pulse Ox O2 Del Method 04/03/25 07:50 36.6 C 91 H 18 122/63 94 Room Air 04/03/25 07:26 102 H 04/03/25 03:17 36.8 C 91 H 18 105/68 93 Room Air 04/03/25 00:19 86 04/02/25 23:50 36.6 C 88 18 134/71 96 Room Air Laboratory Results Cardiac Enzymes 04/02/25 04/02/25 Range/Units 10:45 13:33 AST 19 (13-39) U/L Troponin I High Sens 20.5 H 19.7 (0-20) pg/ml B-Natriuretic Peptide 389 H (0-100) pg/ml Coagulation 04/02/25 Range/Units 10:45 PT 12.5 H (9.0-12.0) Seconds B-Natriuretic Peptide 389 H (0-100) pg/ml CBC 04/02/25 04/03/25 Range/Units 10:45 06:23 WBC 7.85 9.31 (4.8-10.8) K/ul RBC 4.06 L 4.19 L (4.70-6.10) M/uL Hgb 13.3 L 13.6 L (14.0-18.0) g/dl Hct 38.9 L 39.6 L (42.0-52.0) % Plt Count 156 148 (130-400) K/uL Neut # (Auto) 5.62 (1.40-6.50) K/uL Lymph # (Auto) 1.53 (1.20-3.40) K/uL [place] # (Auto) 0.51 (0.11-0.59) K/uL Eos # (Auto) 0.13 (0.00-0.50) K/uL Baso # (Auto) 0.03 (0.00-0.20) K/uL Comprehensive Metabolic Panel 04/02/25 04/02/25 04/03/25 Range/Units 10:45 23:35 06:23 Sodium 143 141 142 (136-145) mmol/L Potassium 4.1 3.8 3.7 (3.5-5.1) mmol/L Chloride 106 102 102 (98-107) mmol/L Carbon Dioxide 29 28 31 (21-32) mmol/L BUN 29 H 29 H 26 H (6-23) mg/dl Creatinine 1.21 1.21 1.26 (0.6-1.4) mg/dl Glucose 114 H 188 H 104 H (70-99(Fasting)) mg/dl Calcium 9.7 9.2 9.3 (8.6-10.3) mg/dl AST 19 (13-39) U/L ALT 24 (7-52) U/L Alkaline Phosphatase 71 (34-104) U/L Total Protein 6.8 (6.0-8.3) gm/dl Albumin 3.9 (3.4-5.0) gm/dl Intake and Output 04/02/25 04/03/25 04/03/25 22:59 06:59 14:59 Intake Total 50 / 150.833 100.833 / 150.833 Output Total 450 / 450 Balance -400 / -299.167 100.833 / -299.167 Intake: IV 50 / 150.833 100.833 / 150.833 Magnesium Sulfate / D5w 1 gm In 100.833 / 100.833 100 ml @ 50 mls/hr IV Q2H [facility] Rx#:[id number] cefTRIAXone SODIUM 2,000 mg In 50 / 50 50 ml @ 100 mls/hr IV Q24H [facility] Rx#:[id number] Output: Urine 450 / 450 Other: # Unmeasured Voids 4 Weight 107.6 kg 103.4 kg Weight Measurement Method Built in [facility] Diagnostic Findings Telemetry: AF with heart rate from 80-100, gradually increasing from presentation PG Care Time/CCT Total # of Minutes Spent Total Time Spent with Patient: Total time spent is greater than 50% in coordination of care (as documented) at patient's floor/unit and/or counseling patient: Coding Level of Care Code 53786 INT INP/OBS CARE 3/75MIN Diagnoses Acute exacerbation of CHF (congestive heart failure) I50.9 Paroxysmal atrial fibrillation I48.0 Severe mitral regurgitation I34.0 Anticoagulant long-term use Z79.01
[2025-04-03] MEDS: LANTUS PER UNIT CHARGE SQ SCH (08:48)
[2025-04-03] MEDS: METOPROLOL TARTRATE 100 MG TAB PO SCH (08:51)
[2025-04-03] MEDS: ENALAPRIL MALEATE 10 MG TAB PO SCH (08:52)
[2025-04-03] MEDS: ASPIRIN 81 MG ECTAB PO SCH (08:53)
[2025-04-03] MEDS: POTASSIUM CHLORIDE 10 MEQ TABCR PO SCH (08:53)
--- NOTE | 2025-04-03 09:44 | Hospitalist Progress Note ---
Date of Service April 03, 2025 Assessment & Plan (1) Acute exacerbation of CHF (congestive heart failure): Plan: Is a 69-year-old incarcerated male with a history of atrial fibrillation, mitral regurgitation who presents from the detention on account of worsening shortness of breath, leg swelling. Found to have congestive changes on chest x-ray 1. Acute CHF exacerbation: Presents with worsening shortness of breath, leg swelling Found to have congestive changes on chest x-ray, BNP elevated at 389, no evidence of PE on CT angio Will obtain 2D echo Con't Lasix 40 mg twice daily Cardiology consult appreciated (2) Paroxysmal atrial fibrillation: Plan: On metoprolol 100 mg daily, continue Also continue apixaban 5 mg twice daily Cardiology recommending possible cardioversion (3) Type 2 diabetes mellitus: Plan: Current insulin sliding scale Continue glargine 34 units daily (4) Severe mitral regurgitation: Plan: Has a history of severe mitral regurgitation seen on the last echo done 2023 Will repeat 2D echo (5) Elevated troponin: Plan: Mild troponin Most likely due to demand ischemia No ST changes on EKG (6) Elevated liver enzymes: Plan: Mild elevation in liver enzymes Could be due to passive congestion of the liver from CHF Will monitor liver enzymes as we diurese him (7) Hypercholesterolemia: Plan: Triglyceride, cholesterol elevated Patient on atorvastatin 80 mg at home Will continue Admission and Anticipated Discharge Date Admission Date: April 02, 2025 Subjective Pt had episode of afib with RVR last night, responded to metoprolol. He denies any chest pain. His shortness of breath as improved this am. Review of Systems Review of Systems: CONST: Negative for fever, body aches and chills. HENT: Negative for neck pain/stiffness, headache, congestion, sore throat, swelling. EYES: Negative for discharge/pain or vision changes. RESP: Negative for cough/hemoptysis and shortness of breath. CV: Negative chest pain, difficulty breathing, palpitations. ABD: Negative pain, nausea, vomiting. : Negative increase frequency, dysuria, blood in urine or stool. MUSC: Negative for muscle aches, edema. SKIN: Negative rash, lesions/sores. NEURO: Negative headache, dizziness, weakness. Physical Exam Physical Exam: GENERAL APPEARANCE NAD, activity normal for age, well developed/ well nourished, no cyanosis, pallor, or diaphoresis. EYES lids/conjunctiva normal. EARS/NOSE/THROAT Mucous membranes moist, nares normal, lips/teeth normal uvula midline without oral pharyngeal erythema, exudate or swelling TMs normal bilaterally. No lymphangitis/lymphedema. HEAD/NECK normocephalic atraumatic, no facial trauma, neck is supple. RESPIRATORY respiratory effort normal, speaks in full sentences, no tripod position, no accessory muscle use. Lungs clear to auscultation without rhonchi, wheezes, rales CARDIAC Regular rate and rhythm, no edema. ABDOMINAL Soft, ND/NT. No evidence of fluid wave. No pulsatile masses on exam, rebound tenderness, Belle sign or pain over Mcburney's point. MUSCLES/EXTREMITIES No abnormal range of motion, no swelling. SKIN Warm, pink and dry. No rashes, dermatoses, petechiae or lesions. NEUROLOGICAL Speech is clear and appropriate. Normal level of consciousness. Gait and coordination are normal. 5/5 strength in all extremities. PSYCH Normal mood and affect. Judgement/competence is appropriate Results & Data Results & Data Vital Signs (Past 12 Hours) Vital Signs Temp Pulse Pulse Resp BP Pulse Ox O2 Del Method 04/03/25 07:50 36.6 C 91 H 18 122/63 94 Room Air 04/03/25 07:26 102 H 04/03/25 03:17 36.8 C 91 H 18 105/68 93 Room Air 04/03/25 00:19 86 04/02/25 23:50 36.6 C 88 18 134/71 96 Room Air PG Care Time/CCT Total # of Minutes Spent Total Time Spent with Patient: Total time spent is greater than 50% in coordination of care (as documented) at patient's floor/unit and/or counseling patient: Coding Level of Care Code 69813 SUB INP/OBS CARE 2/35MIN Diagnoses Acute exacerbation of CHF (congestive heart failure) I50.9 Paroxysmal atrial fibrillation I48.0 Type 2 diabetes mellitus E11.9 Severe mitral regurgitation I34.0 Elevated troponin R79.89 Elevated liver enzymes R74.8 Hypercholesterolemia E78.00
[2025-04-03] MEDS: FLECAINIDE ACETATE 100 MG TABLET PO SCH (10:55)
[2025-04-03] MEDS: CARBOHYDRATES FOR HYPOGLYCEMIA PO ONE (16:06)
[2025-04-03] MEDS ORDERED: DEXTROSE 50% 50 ML SYRINGE IV PRN (16:07)
[2025-04-03] MEDS ORDERED: GLUCOSE 40% GEL 15 GM TUBE PO PRN (16:07)
[2025-04-03] MEDS ORDERED: GLUCAGON FOR INJ 1 MG VIAL SQ PRN (16:07)
[2025-04-03] MEDS ORDERED: CARBOHYDRATES FOR HYPOGLYCEMIA PO PRN (16:07)
[2025-04-03] MEDS ORDERED: GLUCOSE 10 TAB/TUBE PO PRN (16:07)
[2025-04-04] MEDS: LANTUS PER UNIT CHARGE SQ SCH (08:04)
--- NOTE | 2025-04-04 10:16 | Hospitalist Progress Note ---
Date of Service April 04, 2025 Assessment & Plan (1) Acute exacerbation of CHF (congestive heart failure): Plan: Is a 69-year-old incarcerated male with a history of atrial fibrillation, mitral regurgitation who presents from the [facility] on account of worsening shortness of breath, leg swelling. Found to have congestive changes on chest x-ray 1. Acute CHF exacerbation: Presents with worsening shortness of breath, leg swelling Found to have congestive changes on chest x-ray, BNP elevated at 389, no evidence of PE on CT angio Will obtain 2D echo Con't Lasix 40 mg IV twice daily Cardiology consult appreciated (2) Paroxysmal atrial fibrillation: Plan: On metoprolol 100 mg daily, continue Also continue apixaban 5 mg twice daily Cardiology recommending possible cardioversion Flecainide 100mg Q12 Rate controlled overnight (3) Type 2 diabetes mellitus: Plan: Current insulin sliding scale Continue glargine 34 units daily (4) Severe mitral regurgitation: Plan: Has a history of severe mitral regurgitation seen on the last echo done 2023 Will repeat 2D echo (5) Elevated troponin: Plan: Mild troponin Most likely due to demand ischemia No ST changes on EKG (6) Elevated liver enzymes: Plan: Mild elevation in liver enzymes Could be due to passive congestion of the liver from CHF Will monitor liver enzymes as we diurese him (7) Hypercholesterolemia: Plan: Triglyceride, cholesterol elevated Patient on atorvastatin 80 mg at home Will continue Admission and Anticipated Discharge Date Admission Date: April 02, 2025 Subjective No events overnight. Pt resting comfortably in bed. Review of Systems Review of Systems: CONST: Negative for fever, body aches and chills. HENT: Negative for neck pain/stiffness, headache, congestion, sore throat, swelling. EYES: Negative for discharge/pain or vision changes. RESP: Negative for cough/hemoptysis and shortness of breath. CV: Negative chest pain, difficulty breathing, palpitations. ABD: Negative pain, nausea, vomiting. : Negative increase frequency, dysuria, blood in urine or stool. MUSC: Negative for muscle aches, edema. SKIN: Negative rash, lesions/sores. NEURO: Negative headache, dizziness, weakness. Physical Exam Physical Exam: GENERAL APPEARANCE NAD, activity normal for age, well developed/ well nourished, no cyanosis, pallor, or diaphoresis. EYES lids/conjunctiva normal. EARS/NOSE/THROAT Mucous membranes moist, nares normal, lips/teeth normal uvula midline without oral pharyngeal erythema, exudate or swelling TMs normal bilaterally. No lymphangitis/lymphedema. HEAD/NECK normocephalic atraumatic, no facial trauma, neck is supple. RESPIRATORY respiratory effort normal, speaks in full sentences, no tripod position, no accessory muscle use. Lungs clear to auscultation without rhonchi, wheezes, rales CARDIAC Regular rate and rhythm, no edema. ABDOMINAL Soft, ND/NT. No evidence of fluid wave. No pulsatile masses on exam, rebound tenderness, Belle sign or pain over Mcburney's point. MUSCLES/EXTREMITIES No abnormal range of motion, no swelling. SKIN Warm, pink and dry. No rashes, dermatoses, petechiae or lesions. NEUROLOGICAL Speech is clear and appropriate. Normal level of consciousness. Gait and coordination are normal. 5/5 strength in all extremities. PSYCH Normal mood and affect. Judgement/competence is appropriate Results & Data Results & Data Vital Signs (Past 12 Hours) Vital Signs Temp Pulse Pulse Pulse Resp BP Pulse Ox 04/04/25 07:21 82 04/04/25 07:07 36.5 C 91 H 19 116/88 92 04/04/25 03:12 36.7 C 83 19 126/76 93 04/04/25 00:14 36.6 C 86 20 95/66 L 94 04/03/25 23:26 95 H O2 Del Method 04/04/25 07:21 04/04/25 07:07 Room Air 04/04/25 03:12 Room Air 04/04/25 00:14 Room Air 04/03/25 23:26 PG Care Time/CCT Total # of Minutes Spent Total Time Spent with Patient: Total time spent is greater than 50% in coordination of care (as documented) at patient's floor/unit and/or counseling patient: Coding Level of Care Code 29493 SUB INP/OBS CARE 2/35MIN Diagnoses Acute exacerbation of CHF (congestive heart failure) I50.9 Paroxysmal atrial fibrillation I48.0 Type 2 diabetes mellitus E11.9 Severe mitral regurgitation I34.0 Elevated troponin R79.89 Elevated liver enzymes R74.8 Hypercholesterolemia E78.00
--- NOTE | 2025-04-04 11:57 | Cardiology Progress Note ---
Date of Service April 04, 2025 Assessment & Plan (1) Acute exacerbation of CHF (congestive heart failure): (2) Paroxysmal atrial fibrillation: (3) Severe mitral regurgitation: (4) Anticoagulant long-term use: Plan 1. CHF: He does have some evidence of congestive heart failure including peripheral edema, and elevated BNP, chest x-ray findings (although not CT scan findings of it) and symptoms. I agree with diuresis although I do not think he is in severe pulmonary edema. Fluid retention could be related to atrial fibrillation. 2. Paroxysmal atrial fibrillation: I am not sure how much time he spends in atrial fibrillation, his rate is currently well-controlled but when he was in atrial fibrillation in the past he did not feel well. Most of his current cardiovascular symptoms may be due to development of atrial fibrillation even though his heart rate is well-controlled. He may be in persistent atrial fibrillation at this time, we do not have records to determine that. I would consider cardioversion as it seems he has been compliant with his Eliquis. With the recurrence now I did start Flecainide but he remains in AF. It may still work but I am going to tentatively schedule him for cardioversion tomorrow. I discussed this with him and he is agreeable. 3. Mitral regurgitation: This could be contributory to his heart failure and his presentation, as well as his atrial fibrillation, an echocardiogram is pending. This may have to be addressed depending on the severity. 4. Anticoagulation: He is on Eliquis at the correct dose, I would continue this. Admission and Anticipated Discharge Date Admission Date: April 02, 2025 Subjective He is feeling well today, he is in bed and has no sensation of his arrhythmia. He could have symptoms while active but in bed he has not had any cardiovascular symptoms. Physical Exam Physical Exam: Constitutional: Alert, cooperative and in no distress. HEENT: Unremarkable Neck: No jugular venous distention, carotid pulses are normal and equal bilaterally without bruits. Pulmonary: Clear to auscultation bilaterally. Cardiac: Irregular rhythm with a grade 2/6 holosystolic murmur at the apex, no gallop or rub. Abdomen: Soft, nontender with normal bowel sounds. Extremities: +1 pretibial edema. Neurologic: No focal findings. Skin: No rash, ecchymoses or petechiae. Results & Data Vital Signs (Past 12 Hours) Vital Signs Temp Pulse Pulse Pulse Resp BP BP 04/04/25 11:14 36.6 C 69 18 95/60 L 04/04/25 07:21 82 04/04/25 07:07 36.5 C 91 H 19 116/88 04/04/25 03:12 36.7 C 83 19 126/76 04/04/25 00:14 36.6 C 86 20 95/66 L Pulse Ox O2 Del Method 04/04/25 11:14 97 Room Air 04/04/25 07:21 04/04/25 07:07 92 Room Air 04/04/25 03:12 93 Room Air 04/04/25 00:14 94 Room Air Laboratory Results Intake and Output 04/03/25 04/04/25 04/04/25 22:59 06:59 14:59 Intake Total 50 / 1130 480 / 1130 Output Total 500 / 2225 750 / 2225 Balance -450 / -1095 -270 / -1095 Intake: IV 50 / 50 cefTRIAXone SODIUM 2,000 mg In 50 / 50 50 ml @ 100 mls/hr IV Q24H [facility] Rx#:[id number] Oral 480 / 1080 Output: Urine 500 / 2225 750 / 2225 Other: Weight 102 kg Weight Measurement Method Built in [facility] Diagnostic Findings Telemetry: Atrial fibrillation, rate 70 to 90 bpm with some aberrant conduction. PG Care Time/CCT Total # of Minutes Spent Total Time Spent with Patient: Total time spent is greater than 50% in coordination of care (as documented) at patient's floor/unit and/or counseling patient: Coding Level of Care Code 15419 SUB INP/OBS CARE 3/50MIN Diagnoses Acute exacerbation of CHF (congestive heart failure) I50.9 Paroxysmal atrial fibrillation I48.0 Severe mitral regurgitation I34.0 Anticoagulant long-term use Z79.01
--- NOTE | 2025-04-04 15:14 | Anesthesiology Consultation ---
Date of Service April 04, 2025 Assessment & Plan Chart Review Chart Review: Acceptable Risk for Surgery and Patient NOT seen in Pre Admission Testing Consults Requested none ASA ASA4 Proposed Anesthesia Anesthesia Type: General History Height/Weight Height: 5 ft 6 in Weight: 102 kg Allergies Allergy/AdvReac Type Severity Reaction Status Date / Time No Known Allergies Allergy Verified 02/06/24 12:51 Medications Home Medications Medication Instructions Recorded Confirmed Last Taken aspirin 81 mg tablet,delayed 81 mg PO DAILY 06/14/23 04/02/25 Unknown release atorvastatin 40 mg tablet 80 mg PO HS 06/14/23 04/02/25 Unknown enalapril maleate 20 mg tablet 20 mg PO DAILY 06/14/23 04/02/25 Unknown furosemide 40 mg tablet (Lasix) 40 mg PO DAILY 06/14/23 04/02/25 Unknown insulin regular human 100 unit/mL 1 sliding scale dose subcut 06/14/23 04/02/25 06/14/23 06:30 injection solution (Novolin R USEASDIRECTD 2 UNITS Regular U-100 Insulin) metformin 1,000 mg tablet 1,000 mg PO BID 06/14/23 04/02/25 Unknown nitroglycerin 0.4 mg sublingual 0.4 mg sublingual DIRECTED PRN 06/14/23 04/02/25 06/14/23 07:00 tablet (Nitrostat) Chest Pain potassium chloride 10 mEq 10 meq PO DAILY 06/14/23 04/02/25 Unknown tablet,extended release apixaban 5 mg tablet (Eliquis) 5 mg PO BID 07/15/23 04/02/25 Unknown insulin glargine 100 unit/mL 34 unit subcut DAILY 02/06/24 04/02/25 Unknown subcutaneous solution metoprolol tartrate 100 mg tablet 100 mg PO DAILY 04/02/25 04/02/25 Unknown Active Medications Generic Name Dose Route Start Last Admin Trade Name Freq PRN Reason Stop Dose Admin Apixaban 5 mg 04/02/25 21:00 04/04/25 08:21 Apixaban 5 Mg Tablet PO 05/02/25 20:59 5 mg BID DERIK Administration Aspirin 81 mg 04/03/25 09:00 04/04/25 08:21 Aspirin 81 Mg Ectab PO 05/03/25 08:59 81 mg DAILY DERIK Administration Atorvastatin Calcium 80 mg 04/02/25 21:00 04/03/25 20:43 Atorvastatin 40 Mg Tab PO 05/02/25 20:59 80 mg HS DERIK Administration Enalapril Maleate 20 mg 04/03/25 09:00 04/04/25 08:22 Enalapril Maleate 10 Mg Tab PO 05/03/25 08:59 20 mg DAILY DERIK Administration Flecainide Acetate 100 mg 04/03/25 10:30 04/04/25 09:26 Flecainide Acetate 100 Mg Tablet PO 05/03/25 10:29 100 mg Q12 DERIK Administration Furosemide 40 mg 04/02/25 21:00 04/04/25 08:33 Furosemide 40 Mg/4 Ml Vial IV 05/02/25 20:59 40 mg [id number] DERIK Administration Ceftriaxone Sodium 2,000 mg in 50 mls @ 100 mls/hr 04/02/25 19:15 04/03/25 20:42 Rocephin IV 04/07/25 19:14 Infused Q24H DERIK Infusion Insulin Aspart 0 units 04/02/25 21:00 04/04/25 12:04 Insulin Aspart Per Unit Charge SC 05/02/25 20:59 4 units ACHS DERIK Administration Insulin Glargine 20 units 04/04/25 09:00 04/04/25 08:04 Lantus Per Unit Charge SQ 05/04/25 08:59 20 units DAILY DERIK Administration Metoprolol Tartrate 100 mg 04/03/25 09:00 04/04/25 08:22 Metoprolol Tartrate 100 Mg Tab PO 05/03/25 08:59 100 mg DAILY DERIK Administration Potassium Chloride 10 meq 04/03/25 09:00 04/04/25 08:33 Potassium Chloride 10 Meq Tabcr PO 05/03/25 08:59 10 meq DAILY DERIK Administration Past Medical History Medical History Atrial fibrillation severe MR CHF LV moderately dilated NIDDM HLD HTN BiFascicular Bundle Branch Block Vapes/E cigs Exercise / Class Metabolic Activity III < 4 Walking/Shop/Light housework Past Anesthesia History No Hx of Anesthesia Complications and No Family Hx of Anesthesia Complications History of PONV No Hx of PONV and No Hx of Motion Sickness Social History Smoking Status: Never smoker tobacco type: e-cigarettes Hx Alcohol Use: No Hx Substance Use: No Physical Exam Vital Signs Last Vital Signs Temp 36.6 C 04/04/25 11:14 Pulse 56 L 04/04/25 14:36 Resp 18 04/04/25 11:14 BP 95/60 L 04/04/25 11:14 Pulse Ox 97 04/04/25 11:14 O2 Del Method Room Air 04/04/25 11:14 Testing Laboratory Results 04/03/25 06:23 04/03/25 06:23 PT 12.5 Seconds (9.0-12.0) H 04/02/25 10:45 INR 1.2 (0.9-1.1) H 04/02/25 10:45 Urine Color Yellow 04/02/25 13:05 Urine Appearance Clear (Clear) 04/02/25 13:05 Urine pH 6.5 (4.5-7.5) 04/02/25 13:05 Ur Specific [place] 1.009 (1.000-1.030) 04/02/25 13:05 Urine Protein Negative (Negative) 04/02/25 13:05 Urine Glucose (UA) Negative (Negative) 04/02/25 13:05 Urine Ketones Negative (Negative) 04/02/25 13:05 Urine Nitrite Positive (Negative) A 04/02/25 13:05 Ur Leukocyte Esterase 1+ (Negative) H 04/02/25 13:05 Urine WBC (Auto) 6-10 /hpf (0-5) H 04/02/25 13:05 Urine RBC (Auto) 0-2 /hpf (0-2) 04/02/25 13:05 U Hyaline Cast (Auto) 0-2 /lpf (0-2) 04/02/25 13:05 U Epithel Cells (Auto) 0-2 /hpf (0-2) 04/02/25 13:05 Urine Bacteria (Auto) 3+ (None Seen) H 04/02/25 13:05 04/02/25 13:05 Urine Culture - Final Urine,Clean Catch Staphylococcus epidermidis 04/04/25 04/04/25 11:03 07:06 POC Glucose 219 H 126 H Electrocardiogram Date: 04/04/25 Findings: + AFIB @ (@ 97;LAD;RBBB) Chest X-Ray Date: 04/02/25 Findings: + cardiomegaly (mild) and + pulmonary vascular congestion (mild) Echocardiogram Date: 12/18/23 EF: 65% LV Function: normal (LV moderately dilated) RWMA: + none Other Findings: + atrial enlargement (LA mod. dilated) Valvular Disease: + MR (severe w/ prolapse)
[2025-04-05] MEDS: INSULIN ASPART PER UNIT CHARGE SC SCH ×2 (05:50→09:15)
[2025-04-05 06:58] LABS: Calcium 8.7 mg/dl (8.6-10.3); Creatinine Clr Calc Pharmacy 55.7 ml/min; Magnesium 2.1 mg/dl (1.7-2.4); Potassium 4.2 mmol/L (3.5-5.1)
[2025-04-05] MEDS ORDERED: ePHEDrine sulfate 50 MG/ML AMP IV PRN (07:24)
[2025-04-05] MEDS ORDERED: ATROPINE SULFATE 0.1 MG/ML 10ML SYR IV PRN (07:24)
--- NOTE | 2025-04-05 07:36 | History & Physical Bridge Note ---
Date of Service April 05, 2025 History & Physical Bridge Note I have examined the patient, reviewed the History & Physical and in the interval since the performance of the History & Physical I have noted the following changes of clinical significance: no changes noted. I reviewed the indications, procedure, risks and alternatives with the patient, and answered all questions. Patient understands and agrees to the procedure. Consent obtained.
--- NOTE | 2025-04-05 07:44 | Cardioversion ---
Date of Service April 05, 2025 PG Electrical Cardioversion Rp Electrical Cardioversion Report The patient was brought to the laboratory being NPO after midnight and was identified in the laboratory, connected to the recording apparatus including electrocardiographic monitoring, noninvasive blood pressure monitoring and pulse oximetry. Anteroposterior patch electrodes were placed. The patient was anesthetized by the anesthesia department. Once adequate anesthesia was obtained a synchronized biphasic shock was delivered using 200 J with conversion to a sinus rhythm with first-degree AV block and an IVCD. The patient awoke from the anesthetic without sequela, will be observed briefly and then returned to his room. Coding Level of Care Code 32376 CARDIOVERSION, ELECTIVE Additional Codes Electrical Cardioversion Report ([id number])
--- NOTE | 2025-04-05 07:56 | Anesthesiology Progress Note ---
Date of Service April 05, 2025 Anesthesia Post Procedure Vital Signs Vital Signs: Temp Pulse Pulse Resp BP BP Pulse Ox 04/05/25 07:25 71 04/05/25 07:12 36.6 C 91 H 16 128/77 96 04/05/25 03:27 36.5 C 71 17 114/67 98 04/04/25 23:28 36.4 C L 58 L 17 100/63 92 04/04/25 22:05 59 L 04/04/25 20:08 36.4 C L 71 18 142/80 H 95 04/04/25 16:05 36.4 C L 63 18 98/66 L 97 04/04/25 14:36 56 L 04/04/25 11:14 36.6 C 69 18 95/60 L 97 O2 Del Method 04/05/25 07:25 04/05/25 07:12 Room Air 04/05/25 03:27 Room Air 04/04/25 23:28 Room Air 04/04/25 22:05 04/04/25 20:08 Room Air 04/04/25 16:05 Room Air 04/04/25 14:36 04/04/25 11:14 Room Air Transfer of Care Handoff Completed per policy Notes Mental Status: alert / awake / arousable Patient Amnestic to Procedure: Yes Nausea / Vomiting: adequately controlled Pain: adequately controlled Airway Patency, RR, SpO2: stable & adequate BP & HR: stable & adequate Hydration State: stable & adequate Anesthetic Complications: no major complications apparent
[2025-04-05] MEDS: PROPOFOL IV EMULSION 10 MG/ML 20 ML VIAL IV ONE (08:55)
--- NOTE | 2025-04-05 09:29 | Hospitalist Progress Note ---
Date of Service April 05, 2025 Assessment & Plan (1) Acute exacerbation of CHF (congestive heart failure): Plan: Is a 69-year-old incarcerated male with a history of atrial fibrillation, mitral regurgitation who [facility] on account of worsening shortness of breath, leg swelling. Found to have congestive changes on chest x-ray 1. Acute CHF exacerbation: Presents with worsening shortness of breath, leg swelling Found to have congestive changes on chest x-ray, BNP elevated at 389, no evidence of PE on CT angio Will obtain 2D echo Con't Lasix 40 mg IV twice daily Cardiology consult appreciated (2) Paroxysmal atrial fibrillation: Plan: On metoprolol 100 mg daily, continue Also continue apixaban 5 mg twice daily Cardiology recommending possible cardioversion Flecainide 100mg Q12 Rate controlled overnight s/p cardioversion today, now in NSR (3) Type 2 diabetes mellitus: Plan: Current insulin sliding scale Continue glargine 20 units daily (4) Severe mitral regurgitation: Plan: Has a history of severe mitral regurgitation seen on the last echo done 2023 Will repeat 2D echo (5) Elevated troponin: Plan: Mild troponin Most likely due to demand ischemia No ST changes on EKG (6) Elevated liver enzymes: Plan: Mild elevation in liver enzymes Could be due to passive congestion of the liver from CHF Will monitor liver enzymes as we diurese him (7) Hypercholesterolemia: Plan: Triglyceride, cholesterol elevated Patient on atorvastatin 80 mg at home Will continue Plan Place to return to [facility] 04/06 Admission and Anticipated Discharge Date Admission Date: April 02, 2025 Subjective Pt s/p cardioversion this am. Review of Systems Review of Systems: CONST: Negative for fever, body aches and chills. HENT: Negative for neck pain/stiffness, headache, congestion, sore throat, swelling. EYES: Negative for discharge/pain or vision changes. RESP: Negative for cough/hemoptysis and shortness of breath. CV: Negative chest pain, difficulty breathing, palpitations. ABD: Negative pain, nausea, vomiting. : Negative increase frequency, dysuria, blood in urine or stool. MUSC: Negative for muscle aches, edema. SKIN: Negative rash, lesions/sores. NEURO: Negative headache, dizziness, weakness. Physical Exam Physical Exam: GENERAL APPEARANCE NAD, activity normal for age, well developed/ well nourished, no cyanosis, pallor, or diaphoresis. EYES lids/conjunctiva normal. EARS/NOSE/THROAT Mucous membranes moist, nares normal, lips/teeth normal uvula midline without oral pharyngeal erythema, exudate or swelling TMs normal bilaterally. No lymphangitis/lymphedema. HEAD/NECK normocephalic atraumatic, no facial trauma, neck is supple. RESPIRATORY respiratory effort normal, speaks in full sentences, no tripod position, no accessory muscle use. Lungs clear to auscultation without rhonchi, wheezes, rales CARDIAC Regular rate and rhythm, no edema. ABDOMINAL Soft, ND/NT. No evidence of fluid wave. No pulsatile masses on exam, rebound tenderness, Belle sign or pain over Mcburney's point. MUSCLES/EXTREMITIES No abnormal range of motion, no swelling. SKIN Warm, pink and dry. No rashes, dermatoses, petechiae or lesions. NEUROLOGICAL Speech is clear and appropriate. Normal level of consciousness. Gait and coordination are normal. 5/5 strength in all extremities. PSYCH Normal mood and affect. Judgement/competence is appropriate Results & Data Results & Data Vital Signs (Past 12 Hours) Vital Signs Temp Pulse Pulse Resp BP BP Pulse Ox 04/05/25 08:34 36.4 C L 78 17 126/78 95 04/05/25 08:00 69 16 103/64 97 04/05/25 07:46 69 16 105/56 L 97 04/05/25 07:25 71 04/05/25 07:12 36.6 C 91 H 16 128/77 96 04/05/25 03:27 36.5 C 71 17 114/67 98 04/04/25 23:28 36.4 C L 58 L 17 100/63 92 04/04/25 22:05 59 L O2 Del Method O2 Flow Rate 04/05/25 08:34 Room Air 04/05/25 08:00 Room Air 04/05/25 07:46 Oxymask 4 04/05/25 07:25 04/05/25 07:12 Room Air 04/05/25 03:27 Room Air 04/04/25 23:28 Room Air 04/04/25 22:05 PG Care Time/CCT Total # of Minutes Spent Total Time Spent with Patient: Total time spent is greater than 50% in coordination of care (as documented) at patient's floor/unit and/or counseling patient: Coding Level of Care Code 46498 SUB INP/OBS CARE MIN Diagnoses Acute exacerbation of CHF (congestive heart failure) I50.9 Paroxysmal atrial fibrillation I48.0 Type 2 diabetes mellitus E11.9 Severe mitral regurgitation I34.0 Elevated troponin R79.89 Elevated liver enzymes R74.8 Hypercholesterolemia E78.00
--- NOTE | 2025-04-05 10:23 | Discharge Summary ---
Discharge Summary Date of Service April 05, 2025 Principal Dx & Hospital Course #1 = Principal Diagnosis (1) Acute exacerbation of CHF (congestive heart failure): Is a 69-year-old incarcerated male with a history of atrial fibrillation, mitral regurgitation who [facility] on account of worsening shortness of breath, leg swelling. Found to have congestive changes on chest x-ray 1. Acute CHF exacerbation: Presents with worsening shortness of breath, leg swelling Found to have congestive changes on chest x-ray, BNP elevated at 389, no evidence of PE on CT angio Will obtain 2D echo Con't Lasix 40 mg IV twice daily Cardiology consult appreciated (2) Paroxysmal atrial fibrillation: On metoprolol 100 mg daily, continue Also continue apixaban 5 mg twice daily Cardiology recommending possible cardioversion Flecainide 100mg Q12 Rate controlled overnight s/p cardioversion today, now in NSR (3) Type 2 diabetes mellitus: Current insulin sliding scale Continue glargine 20 units daily (4) Severe mitral regurgitation: Has a history of severe mitral regurgitation seen on the last echo done 2023 Will repeat 2D echo (5) Elevated troponin: Mild troponin Most likely due to demand ischemia No ST changes on EKG (6) Elevated liver enzymes: Mild elevation in liver enzymes Could be due to passive congestion of the liver from CHF Will monitor liver enzymes as we diurese him (7) Hypercholesterolemia: Triglyceride, cholesterol elevated Patient on atorvastatin 80 mg at home Will continue Plan Place to return to correctional facility 04/06 Admission HPI Per Admitting Provider Is a 68-year-old male with a history of type 2 diabetes, atrial fibrillation on Eliquis, mitral regurgitation, first-degree AV block, [facility] with complaints of worsening shortness of breath. According to the patient, he noticed that he was getting short of breath starting about 1 week ago but he got progressively worse. He said he got short of breath even on mild exertion and also noticed worsening leg swelling and some chest pressure or discomfort. He has a history of atrial fibrillation and first-degree AV block and follows up with cardiology, his last cardiology visit was sometime last year January 2024. Today in the emergency department D-dimer was elevated however CT angio chest did not suggest PE BNP was 389 his lipid profile was elevated. Chest x-ray showed evidence of mild cardiomegaly with mild pulmonary vascular congestion. He was given a dose of Lasix and will be admitted to the hospital for further investigation of further management. Discharge Exam GENERAL APPEARANCE NAD, activity normal for age, well developed/ well nourished, no cyanosis, pallor, or diaphoresis. EYES lids/conjunctiva normal. EARS/NOSE/THROAT Mucous membranes moist, nares normal, lips/teeth normal uvula midline without oral pharyngeal erythema, exudate or swelling TMs normal bilaterally. No lymphangitis/lymphedema. HEAD/NECK normocephalic atraumatic, no facial trauma, neck is supple. RESPIRATORY respiratory effort normal, speaks in full sentences, no tripod position, no accessory muscle use. Lungs clear to auscultation without rhonchi, wheezes, rales CARDIAC Regular rate and rhythm, no edema. ABDOMINAL Soft, ND/NT. No evidence of fluid wave. No pulsatile masses on exam, rebound tenderness, Belle sign or pain over Mcburney's point. MUSCLES/EXTREMITIES No abnormal range of motion, no swelling. SKIN Warm, pink and dry. No rashes, dermatoses, petechiae or lesions. NEUROLOGICAL Speech is clear and appropriate. Normal level of consciousness. Gait and coordination are normal. 5/5 strength in all extremities. PSYCH Normal mood and affect. Judgement/competence is appropriate Discharge Plan Discharge Items [facility] Disposition: [facility] Reason For Visit: CHF EXACERBATION Discharge Diagnosis: CHF exacerbation, AFib with RVR Condition on Discharge: Fair Activity: Resume your previous activity Non-emergency contact: Primary Care Provider Call non-emergency contact if: you have any medication questions Follow-up/Referrals: Daryl TORRES [Primary Care Provider] - Diet: Carb Consistent or DM2 Addtl Attending Provider Instructions: Follow up with PMD in 2 weeks Pending Studies at Discharge: No Stand-Alone Forms: My [facility] Skilled Items Patient informed of condition?: Yes Discharge Level of Care: Other Communicable Disease: No Discharge Prognosis: Stable Lines: None Urinary Catheter: No Medications and DC Order Prescriptions: New flecainide 100 mg Tablet 100 mg PO Q12 Qty: 60 0RF Continued Eliquis 5 mg tablet 5 mg PO BID furosemide [Lasix] 40 mg Tablet 40 mg PO DAILY atorvastatin 40 mg Tablet 80 mg PO HS enalapril maleate 20 mg Tablet 20 mg PO DAILY potassium chloride 10 mEq Tablet Extended Release 10 meq PO DAILY aspirin 81 mg Tablet,Delayed Release (Dr/Ec) 81 mg PO DAILY metformin 1,000 mg Tablet 1,000 mg PO BID Novolin R Regular U100 Insulin 100 unit/mL Solution 1 sliding scale dose SUBCUT USEASDIRECTD Rx Instructions: BSG 151-200=2 UNITS, BSG 201-250=4 UNITS, BSG 251-300=6 UNITS, BSG 301-350=8 UNITS, BSG 351-400=10 UNITS, BSG 401-450=12 UNITS, BSG >451=CALL MD. nitroglycerin [Nitrostat] 0.4 mg Tablet, Sublingual 0.4 mg sublingual DIRECTED PRN (Reason: Chest Pain) insulin glargine 100 unit/mL solution 34 unit SUBCUT DAILY metoprolol tartrate 100 mg Tablet 100 mg PO DAILY Discharge Orders: Discharge Order (Routine); Ordered 04/05/25 Ordered By: Masood Jimenez Admission Data Admit Date/Time: 04/02/25 16:43 Attending Provider: Masood Jimenez Admit Provider: Gwen Graves Primary Care Provider: Daryl TORRES Other Providers: Gwen Graves; Vincenzo Sanchez; Rupinder Garcia; Allyn Lindsey; Aura Morel; Leesa Snyder; Irineo Vigil; Cesario Steele; Onesimo Guzman; Fausto Cunningham; Sylwia Reyes Upendra; Eliazar Farris; Alfonso Luna; Selena Box; Lam Allred; Roxie Allred; Arnulfo Hammonds; Viola Merida; [place]; Shantal Stack; Yazmin Baker; Reggie Hwang; Millie Carbajal; Marlen Moise; Janessa Hogan; Chanelle Diaz; Florentino Diaz V; Subhash Mina; Allyn Fermin; Ethan Li; aYdy Jimenez; Florentino Traylor; Wil Box; Ryan Moise; Daylin Rodriguez; Rhonda Martell; Florentino Burnham; Darrell Valdez; Laura Parada; Kimo Gonzalez; Mckenzie Sosa; Marly Rosas; Pablito Lackey; Angel Whitten; Trinidad Medrano; Onesimo Howard; Josee Schwartz; Otis Acosta; Favio Akbar; Irineo Barrera Jr; Deysi Herbert; Hairni Arshad; Jossy Soto; Reggie Jenkins; Rajesh Carroll; Harini Sesay; Rio Lentz; Glen Cordero; Harmeet Tillman; Cesario Camargo; Everette Howard; Lindsay Tinoco; Bridget Shields; Rona Gomez; Camille Lemon; Mandy Raymond; Tanner Springer Jr; Hilda Marion; Millie Lopez; Aaron Burger; Leonarda Villela; Mikki Morris; Clementina Mendez; Mandi Box Hospital Stay Data Consultations 04/02/25 16:39 ED Decision to Admit Stat 04/03/25 07:53 Consult Cardiology Routine 04/04/25 13:27 Consult Anesthesiology Routine Procedures Performed Operation Date: 04/05/25 07:30 Actual Procedures p Cardioversion w/Anesthesia Sedation - Vincenzo Sanchez MD Diagnostic Imagining Performed 04/02/25 12:22 CT for pulmonary embolism PE [CT angio chest PE protocol] Stat Pending Results Patient Have Any Pending Studies at Discharge: No Discharge Instructions Given to Patient (Per Discharging Provider) Follow up with PMD in 2 weeks Total Time Total Time Spent Total Time Spent (In Minutes): 50 Coding Level of Care Code 80945 INP/OBS DISCH >30 MIN Diagnoses Acute exacerbation of CHF (congestive heart failure) I50.9 Paroxysmal atrial fibrillation I48.0 Type 2 diabetes mellitus E11.9 Severe mitral regurgitation I34.0 Elevated troponin R79.89 Elevated liver enzymes R74.8 Hypercholesterolemia E78.00
--- NOTE | 2025-04-05 16:00 | Electrocardiogram Report ---
Test Reason : Blood Pressure : */* mmHG Vent. Rate : 101 BPM Atrial Rate : * BPM P-R Int : * ms QRS Dur : 118 ms QT Int : 360 ms P-R-T Axes : * -62 94 degrees QTcB Int : 466 ms Atrial fibrillation with rapid ventricular response and aberrant conduction Right bundle branch block Left anterior fascicular block Bifascicular block Anterior infarct (cited on or before 06-Feb-2024) Abnormal ECG When compared with ECG of 02-Apr-2025 10:43, T wave inversion no longer evident in Inferior leads Nonspecific T wave abnormality now evident in Lateral leads Confirmed by Vincenzo Sanchez ([id number]) on 04/05/2025 4:00:19 PM Referred By: Daryl [facility] Confirmed By: Vincenzo Sanchez
--- NOTE | 2025-04-05 16:11 | XCELERA ---
[id number]
--- NOTE | 2025-04-06 14:22 | Coding Query ---
CONGESTIVE HEART FAILURE To Promote full compliance with coding requirements relating to patient care, physician participation is requested in all cases of associate professor of communication uncertainty. Please assist us with the following questions. A diagnosis of Congestive Heart Failure is documented in the patient's medical record. To accurately code this diagnosis and to compare patient severity, we ask that you specify the type of heart failure by placing an X within the parenthesis (x). SYSTOLIC HEART FAILURE ( ) Acute ( ) Chronic (x ) Acute on Chronic ( ) Rheumatic ( ) Unknown DIASTOLIC HEART FAILURE ( ) Acute ( ) Chronic ( ) Acute on Chronic ( ) Rheumatic ( ) Unknown COMBINED SYSTOLIC AND DIASTOLIC HEART FAILURE ( ) Acute ( ) Chronic ( ) Acute on Chronic ( ) Rheumatic ( ) Unknown Was the CHF Present On Admission? Please check the appropriate box: ( ) Present on Admission ( ) Not Present On Admission ( ) Clinically undetermined Thank you Carrol KNIGHT
--- NOTE | 2025-04-06 15:40 | Electrocardiogram Report ---
Test Reason : Blood Pressure : */* mmHG Vent. Rate : 97 BPM Atrial Rate : * BPM P-R Int : * ms QRS Dur : 152 ms QT Int : 426 ms P-R-T Axes : * -75 90 degrees QTcB Int : 541 ms Atrial fibrillation Left anterior fascicular block Right bundle branch block Abnormal ECG When compared with ECG of 02-Apr-2025 23:20, (unconfirmed) QRS duration has increased T wave amplitude has increased in Inferior leads T wave inversion less evident in Anterior leads QT has lengthened Confirmed by Vincenzo Sanchez ([id number]) on 04/06/2025 3:39:44 PM Referred By: Daryl TORRES Confirmed By: Vincenzo Sanchez
== END 2025-04-05 13:27 | DRG 292 ==
LOC: ED 10:32 → 2S 16:43 → SUATTDRO 16:43 → 2S 18:22